=== PATIENT | female | born 1960 | race Caucasian/White ===

== ENCOUNTER 2019-03-06 21:18 | Emergency (ER) ==
[2019-03-06 21:33] VITALS: BP 116/78; TEMP 98.6; BMI 25.9
[2019-03-06] MEDS ORDERED: TORADOL IM STA (22:49)
--- NOTE | 2019-03-06 22:49 | ED.PDOC ---
General ED Provider: Dr. ARIANNE BARRON Chief Complaint: Hip Pain/Injury Stated Complaint: 59 y old-self driving-pain in sacro-iliac region on the left, No sciatica,no radicular signs.ROM in left hip and knee is normal. Time Seen by Physician: 21:35 Mode of Arrival: Walk-In Information Source: Patient Exam Limitations: No limitations Primary Care Provider: CHANNING MILLER Nursing and Triage Documentation Reviewed and Agree: Yes Does patient meet sepsis criteria?: No System Inflammatory Response Syndrome: Not Applicable Sepsis Protocol: For patient's 13 years and over: Temp is 96.8 and below OR 101 and greater Pulse >90 BPM Resp >20/minute Acutely Altered Mental Status Are patient's symptoms suggestive of a new infection, such as: -Pneumonia -Skin, Soft Tissue -Endocarditis -UTI -Bone, Joint Infection -Implantable Device -Acute Abdominal Infection -Wound Infection -Meningitis -Blood Stream Catheter Infection -Unknown Musculoskeletal Complaint Exam - Back Pain Complaint/Exam Mechanism of Injury: Reports: No known trauma Symptoms Are: Still present Timing: Intermittent Episodes Lasting: Hours Initial Severity: Mild Current Severity: Mild Character: Reports: Aching Aggravating: Reports: Movements Alleviating: Reports: Rest Related History: Reports: Similar episode TAD Risk Factors: Reports: None AAA Risk Factors: Reports: None Cauda Equina Risk Factors: Reports: None Epidural Abcess Risk Factors: Reports: None Related Surgical History: Reports: None Focal Tenderness: Yes Paraspinal Muscle Tenderness: Yes Paraspinal Muscle Spasm: No Scoliosis: No Focal Weakness: Present: None Focal Sensory Loss: Present: None Differential Diagnoses: Arthritis, Strain Review of Systems - Review Of Systems Constitutional: Reports: No symptoms Eyes: Reports: No symptoms Ears, Nose, Mouth, Throat: Reports: No symptoms Respiratory: Reports: No symptoms Cardiac: Reports: No symptoms GI: Reports: No symptoms : Reports: No symptoms Musculoskeletal: Reports: Back pain Skin: Reports: No symptoms Neurological: Reports: No symptoms Endocrine: Reports: No symptoms Hematologic/Lymphatic: Reports: No symptoms All Other Systems: Reviewed and Negative Past Medical History - Past Medical History Endocrine: Reports: Hypothyroid Cardiovascular: Reports: None Respiratory: Reports: None Hematological: Reports: None Gastrointestinal: Reports: None Genitourinary: Reports: None Neuro/Psych: Reports: Seizure, PTSD Musculoskeletal: Reports: None Cancer: Reports: None Last Menstrual Period: HYST AT 32 Y/O Other Pertinent Past Medical History: Glaucoma - Surgical History General Surgical History: Reports: None - Family History Family History: Reports: None - Social History Smoking Status: Current every day smoker, Heavy tobacco smoker Hx Substance Use: No Alcohol Screening: None - Immunizations Tetanus Shot up to Date: No (UNSURE) Physical Exam - Physical Exam Appearance: Well-appearing Ill-appearing: None Pain Distress: None Eyes: KAREEM, EOMI, Conjunctiva clear ENT: Ears normal, Nose normal, Oropharynx normal Neck: Supple Respiratory: Airway patent, Breath sounds clear, Breath sounds equal Cardiovascular: RRR, Pulses normal, No rub, No murmur GI/: Soft, Nontender Musculoskeletal: Normal strength, ROM intact, No edema Skin: Warm, Dry Neurological: Sensation intact Psychiatric: Affect appropriate Critical Care Note - Critical Care Note Total Time (mins): 0 Course - Course Orders, Labs, Meds: Orders Category Date Time Status Cyclobenzaprine HCl [Flexeril] MEDS 03/06/19 22:50 Stat 10 mg PO ONCE STA Ketorolac Tromethamine [Toradol] MEDS 03/06/19 22:49 Stat 60 mg IM ONCE STA Medications Discontinued Medications Generic Name Dose Route Start Last Admin Trade Name Freq PRN Reason Stop Dose Admin Cyclobenzaprine HCl 10 mg 03/06/19 22:50 Flexeril PO 03/06/19 22:51 ONCE STA Ketorolac Tromethamine 60 mg 03/06/19 22:49 Toradol IM 03/06/19 22:50 ONCE STA Vital Signs: Temp Pulse Resp BP Pulse Ox 03/06/19 21:21 98.6 F 89 20 116/78 98 Departure - Departure Time of Disposition: 22:55 Disposition: HOME SELF-CARE Discharge Problem: Back pain Instructions: Low Back Strain (ED) Condition: Good Pt referred to PMD for follow-up: Yes IPMP verified?: No Allergies/Adverse Reactions: Allergies No Known Allergies Allergy (Verified 03/06/19 21:32) Home Medications: Ambulatory Orders Gabapentin [Neurontin] 800 mg PO TID 09/01/13 Levetiracetam [Keppra] 100 mg PO BID 09/01/13 Levothyroxine Sodium [Synthroid] 75 mcg PO DAILY 09/01/13 Lorazepam [Ativan] 1 mg PO BID 09/01/13 Promethazine HCl [Phenergan] 25 mg PO PRN PRN 09/01/13 Rosuvastatin Calcium [Crestor] 10 mg PO DAILY 09/01/13 Tizanidine HCl [Zanaflex] 4 mg PO BID 09/01/13 Zolpidem Tartrate [Ambien] 10 mg pe PO BEDTIME 09/01/13 Disposition Discussed With: Patient
[2019-03-06] MEDS ORDERED: FLEXERIL PO STA (22:50)
== END 2019-03-06 23:28 | disposition home or self-care (01) ==
LOC: ED 21:18
DX: M54.5 Low back pain (principal); M25.552 Pain in left hip; F17.210 Nicotine dependence, cigarettes, uncomplicated
CPT/HCPCS: 96372; 99282